=== PATIENT | male | born 1985 | race Caucasian/White ===

== ENCOUNTER 2018-04-17 18:06 | Inpatient (IN) | payer OTHER ==
[2018-04-17] MEDS ORDERED: DEXAMETHASONE 10 MG/ML VIAL IVP ONE (18:49)
[2018-04-17] MEDS ORDERED: NS 1,000 ML IV ONE (18:49)
[2018-04-17] MEDS ORDERED: chlorproMAZINE HCL 50 MG in NS 50 ML IV ONE (18:49)
--- NOTE | 2018-04-17 18:54 | EDPHY ---
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 He reports having a upper respiratory type illness last week but no fever. His symptoms essentially resolved other than a mild runny nose. However on Monday he developed a headache and nausea and vomiting. This is persisted for the last 3 days. No fever. No neck stiffness. No trauma. He states that he had a MRI in December and is pituitary was normal at that time and had no abnormal masses. He does not get frequent headaches. No focal weakness or deficits. He presented to an urgent care earlier today and was given Zofran and Toradol without improvement. Severity: Moderate REVIEW OF SYSTEMS: Constitutional: denies: chills, fever, recent illness, recent injury EENTM: denies: blurred vision, double vision, nose congestion Respiratory: denies: cough, shortness of breath Cardiac: denies: chest pain, irregular heart rate, lightheadedness, palpitations Gastrointestinal/Abdominal: denies: abdominal pain, diarrhea, nausea, vomiting, blood streaked stools Genitourinary: denies: dysuria, frequency, hematuria, pain Musculoskeletal: denies: joint pain, muscle pain Skin: denies: lesions, rash, jaundice, bruising Neurological: See HPI denies: numbness, paresthesia, tingling, dizziness, weakness Hematologic/Lymphatic: denies: blood clots, easy bleeding, easy bruising Immunologic/allergic: denies: HIV/AIDS, transplant 10 systems reviewed and negative except as noted EXAM: GENERAL: Well-appearing, well-nourished and in no acute distress. HEAD: Atraumatic, normocephalic. EYES: Pupils equal round and reactive to light, extraocular movements intact, sclera anicteric, conjunctiva are normal. ENT: TMs normal, nares patent, oropharynx clear without exudates. Moist mucous membranes. NECK: Normal range of motion, supple without lymphadenopathy or JVD. LUNGS: Breath sounds clear to auscultation bilaterally and equal. No wheezes rales or rhonchi. HEART: Regular rate and rhythm without murmurs, rubs or gallops. ABDOMEN: Soft, nontender, normoactive bowel sounds. No guarding, no rebound. No masses appreciated. BACK: No CVA tenderness, no spinal tenderness, step-offs or deformities EXTREMITIES: Normal range of motion, no pitting or edema. No clubbing or cyanosis. NEUROLOGICAL: Cranial nerves II through XII grossly intact. Normal speech, normal gait. 5/5 strength, normal movement in all extremities, normal sensation , normal reflexes PSYCH: Normal mood, normal affect. SKIN: Warm, dry, normal turgor, no visible rashes or lesions. Source: Patient Exam Limitations: No limitations - Personal History Current Tetanus Diphtheria and Acellular Pertussis (TDAP): Unsure - Medical/Surgical History Hx Asthma: No Hx Chronic Respiratory Disease: No Hx Diabetes: No Hx Cardiac Disease: No Hx Renal Disease: No Hx Cirrhosis: No Hx Alcoholism: No Hx HIV/AIDS: No Hx Splenectomy or Spleen Trauma: No Other PMH: pituitary condition - Social History Smoking Status: Never smoked Alcohol Use: Sober Drug Use: None Constitutional: Initial Vital Signs Temperature (C) 36.6 C 04/17/18 18:12 Heart Rate 84 04/17/18 18:12 Respiratory Rate 18 04/17/18 18:12 Blood Pressure 102/85 H 04/17/18 18:12 O2 Sat (%) 98 04/17/18 18:12 O2 Delivery Mode Room Air Allergies/Adverse Reactions: No Known Allergies Allergy (Unverified 04/17/18 18:10) Home Medications: Medication Instructions Recorded Desmopressin Acetate [DESMOPRESSIN 1 spray NASAL BID PRN 04/17/18 ACETATE] Desmopressin Acetate [DESMOPRESSIN 2 sprays NASAL HS 04/17/18 ACETATE] Omeprazole 10 mg PO DAILY PRN 04/17/18 Medical Decision Making - Diagnostics EKG Interpretation: An EKG obtained and was read and documented in trace view. Please see trace view for full reading and report. Sinus rhythm, right bundle branch block, repolarization abnormality, no T-wave abnormalities. No previous for comparison Imaging: Discussed imaging studies w/ remotely operated vehicle Radiologist ED Course/Re-evaluation: 7:30 p.m. We discussed head CT which is reassuring. The medication has not been given yet because of some difficulty getting an IV in the patient went to CT scan. 735 p.m. alerted about patient's electrolyte abnormalities. The patient did receive 500 cc of normal saline before the labs are back. We have now turned the fluids off. We will obtain EKG. 7:35 p.m. Discussed the case with Dr. Torrez who will admit. She requests we consult renal. 7:50 p.m. I discussed the case with Dr. Lizama from Nephrology. He requests a repeat chemistry and will come to evaluate. He also requests urine osmoles and urine sodium. Differential Diagnosis: Partial list of the Differential diagnosis considered include but were not limited to; electrolyte abnormality, dehydration, migraine, tension headache and although unlikely based on the history and physical exam, I also considered hemorrhage, tumor, mass. Critical Care Time: Critical care time spent by me, Dr. Benito exclusive with this patient was 45 minutes, exclusive of the PA time exclusive of procedures. The organ system that was at risk was neurologic and I gave fluids, medications, consultation to prevent worsening of the patient's condition - Data Points Laboratory Results: Laboratory Results 04/17/18 18:44 04/17/18 18:44 Medications Given: Acetaminophen (Tylenol) 650 mg PO Q4HRS PRN PRN Reason: Pain, Mild/Fever, Can Take PO Stop: 10/14/18 19:38 Last Admin: 04/18/18 07:57 Dose: 650 mg Desmopressin Acetate (Desmopressin 10 Mcg/0.1 Ml Wana) 10 mcg ALTNARE BID ELSA Stop: 10/16/18 11:29 Last Admin: 04/19/18 11:55 Dose: 1 spray Dextrose (D5w) 1,000 mls @ 250 mls/hr IV CONT ELSA Stop: 10/15/18 09:59 Last Admin: 04/19/18 16:52 Dose: 1,000 mls Lorazepam (Ativan) 1 mg PO HS ELSA Stop: 10/15/18 20:59 Last Admin: 04/18/18 21:01 Dose: 1 mg Ondansetron HCl (Zofran) 4 mg IVP Q4HRS PRN PRN Reason: Nausea/Vomiting, Can't Take PO Stop: 10/14/18 19:38 Last Admin: 04/17/18 20:40 Dose: 4 mg Discontinued Medications Dexamethasone (Decadron Injection) 10 mg IVP EDNOW ONE Stop: 04/17/18 19:16 Last Admin: 04/17/18 19:21 Dose: 10 mg Chlorpromazine HCl 50 mg/ (Sodium Chloride) 52 mls @ 62.4 mls/hr IV ONCE ONE Stop: 04/17/18 19:38 Last Admin: 04/17/18 19:24 Dose: 52 mls Sodium Chloride (Ns) 1,000 mls @ 0 mls/hr IV ONCE ONE; Wide Open PRN Reason: Protocol Stop: 04/17/18 18:50 Last Admin: 04/17/18 19:19 Dose: 1,000 mls Albumin Human (Alburx 5) 500 mls @ 0 mls/hr IV ONCE ONE PRN Reason: As Directed Stop: 04/17/18 21:07 Last Admin: 04/17/18 22:19 Dose: Not Given Dextrose (D5w) 200 mls @ 200 mls/hr IV ONCE ONE Stop: 04/18/18 07:51 Last Admin: 04/18/18 07:46 Dose: Not Given Dextrose (D5w) 200 mls @ 200 mls/hr IV ONCE ONE Stop: 04/18/18 07:59 Last Admin: 04/18/18 07:51 Dose: 200 mls Sodium Chloride (1/2 Ns) 1,000 mls @ 100 mls/hr IV CONT ELSA Stop: 10/15/18 07:14 Last Admin: 04/18/18 08:58 Dose: 1,000 mls Desmopressin Acetate 4 mcg/ (Sodium Chloride) 51 mls @ 102 mls/hr IV ONCE ONE Stop: 04/18/18 10:29 Last Admin: 04/18/18 09:57 Dose: 51 mls Desmopressin Acetate 6 mcg/ (Sodium Chloride) 51.5 mls @ 100 mls/hr IV ONCE ONE Stop: 04/18/18 16:18 Last Admin: 04/18/18 16:36 Dose: 51.5 mls Influenza Virus Vaccine Quadrival (Flulaval Quad [id number] (6mo+)) 0.5 ml IM .ONCE ONE Stop: 04/18/18 08:25 Last Admin: 04/18/18 08:43 Dose: 0.5 ml Lorazepam (Ativan) 1 mg PO ONCE ONE Stop: 04/18/18 02:58 Last Admin: 04/18/18 03:03 Dose: 1 mg Departure - Departure Disposition: [facility] In[facility] Acute Clinical Impression: Hyponatremia, Diabetes insipidus, Hyperkalemia Condition: Critical
[2018-04-17 19:06] LABS: PLATELET COUNT 347 10^3/uL (150-400)
[2018-04-17] MEDS ORDERED: DEXAMETHASONE 4 MG/ML VIAL IVP ONE (19:15)
[2018-04-17] MEDS ORDERED: ONDANSETRON 4 MG/2 ML VIAL IVP PRN (19:39)
[2018-04-17] MEDS ORDERED: ONDANSETRON DISINTEGRATING 4 MG TAB PO PRN (19:39)
[2018-04-17] MEDS ORDERED: ACETAMINOPHEN 325 MG TAB PO PRN (19:39)
--- NOTE | 2018-04-17 19:49 | CPEKG ---
Test Reason : OPEN Blood Pressure : / mmHG Vent. Rate : 072 BPM Atrial Rate : 071 BPM P-R Int : 164 ms QRS Dur : 132 ms QT Int : 389 ms P-R-T Axes : 047 043 072 degrees QTc Int : 426 ms Sinus rhythm IVCD, consider atypical RBBB ST elev, probable normal early repol pattern Confirmed by Mark Benito ([id number]) on 04/17/2018 7:48:44 PM Referred By: Confirmed By:Mark Benito
[2018-04-17] MEDS ORDERED: ALBUMIN 5% 500 ML IV ONE (21:06)
--- NOTE | 2018-04-17 21:28 | GHP ---
DATE OF ADMISSION: 04/17/2018 CHIEF COMPLAINT: Nausea, vomiting, hyponatremia. HISTORY OF PRESENT ILLNESS: A 32-year-old male with diabetes insipidus, on desmopressin, presenting with persistent nausea, vomiting, diarrhea since Monday morning. He reports URI symptoms, including sore throat, productive cough, runny nose last week. [place] a little bit better, but then developed nausea, vomiting, watery diarrhea on Monday that has been persistent since that time. Denies fevers. Has not been able to keep much fluid or liquid down. Has complained of a headache since Monday. No neck stiffness or pain. No slurred speech or weakness. Per , no confusion. He presented to urgent care earlier today, was given Zofran and Toradol, but symptoms persisted. In the ER, he was given 500 mL of normal saline. Sodium was 115. REVIEW OF SYSTEMS: I completed a 10-point review of systems, negative except as noted in HPI. PAST MEDICAL HISTORY: Diabetes insipidus, diagnosed March 2017. SOCIAL HISTORY: Lives in [place] with his . Works at [employer]. 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 No tobacco or illicits. SURGERIES: [place] teeth. FAMILY HISTORY: Mother with breast cancer. Maternal grandfather with leukemia. ALLERGIES: None. HOME MEDICATIONS: Zofran, Toradol, desmopressin. PHYSICAL EXAMINATION: VITAL SIGNS: Temperature 36.6, blood pressure /85, repeat 135/85, heart rate in the 70s, respirations 16, 96% on room air. GENERAL: He is ill-appearing, lying in bed with his eyes covered with a towel. HEENT: PERRLA. Dry mucous membranes. Oropharynx looks clear. CV: Regular rate and rhythm. LUNGS: Clear. ABDOMEN: Soft, nontender, nondistended. Positive bowel sounds. : No Smith. MUSCULOSKELETAL: 5/5 upper and lower extremity strength. NEURO: 2 through 12 intact. PSYCH: Alert and oriented x3. LABORATORY DATA: Sodium 115, potassium 6.6, chloride 86, carbon dioxide 19, creatinine 0.5, glucose 103, calcium 8.8. Specimen is hemolyzed. WBC 6, hemoglobin 15, hematocrit 40, platelets 347. ASSESSMENT AND PLAN: 1. Hyponatremia: complicated with diabetes insipidus and dehydration. Received 500 cc of normal saline in the ER. Holding this. Repeating BMP now, urine studies pending. Dr. Lizama with Nephrology will consult. 2. Nausea, vomiting, diarrhea: GI/resp panel pending. 3. Diabetes insipidus: Hold desmopressin. Followed by PCP, Dr. Salgado, phone #[phone]. 4. Hyperkalemia: No peaked T-waves on EKG. Suspect hemolysis. Repeat BMP now. Monitor on telemetry. 5. Diet: Regular. 6. Deep venous thrombosis prophylaxis: Low risk ambulatory. 7. Disposition: The patient warrants inpatient admission to the ICU for serial labs, telemetry, and Nephrology consultation. /[id number]/MODL MTDD
[2018-04-17] MEDS ORDERED: NS 1,000 ML IV SCH (23:15)
[2018-04-18] MEDS ORDERED: LORazepam 0.5 MG TAB PO ONE (02:57)
--- NOTE | 2018-04-18 06:50 | PDMN ---
Medical Necessity Medical necessity: Pt meets inpt criteria per MD order and MCG M-370, Vomiting. 32 y/o w/diabetes insipidus, presenting w/persistent nausea/vomiting, diarrhea, severe electrolyte abnormality w/sodium of 115, potassium of 6.6. Pt also reports URI symptoms. Inpt admission to ICU, IVF, serial labs, tele, nephrology consult. Est LOS>2MN for ongoing eval/management of above.
[2018-04-18] MEDS ORDERED: D5W 200 ML IV ONE ×2 (06:52→07:00)
[2018-04-18] MEDS ORDERED: 1/2 NS 1,000 ML IV SCH (07:15)
--- NOTE | 2018-04-18 07:51 | GCON ---
RENAL CONSULTATION DATE OF CONSULTATION: 04/17/2018 REQUESTING PHYSICIAN: Dr. Sadie Torrez REASON FOR CONSULT: Hyponatremia. HISTORY OF PRESENT ILLNESS: The patient is a 32-year-old man with history of central diabetes insipi dus, on desmopressin daily, who presents with 3 days of nausea, vomiting and diarrhea, and found to h ave severe hyponatremia. Renal has been asked to assist in the evaluation and management of his cond ition. The patient reports he had mild upper respiratory infection symptoms over the previous week, which progressed to nausea, vomiting and diarrhea for the last 3 days. This has been worse today, al so including headache and hiccuping. During the last couple of days, he has been able to drink a lit tle bit of water, but very little food. He had half a banana today. He denies any fevers, chills, c hest pain or shortness of breath. He denies any known sick contacts. He has continued on his prescr iption medication including desmopressin and has also taken some ibuprofen and Zantac for his symptom s. He was admitted with a sodium of 115, and was given 500 cc of normal saline in the ER prior to re turn of the labs, at which point the saline was stopped. He also received Zofran for supportive care as well as Compazine. His nausea is improving and his hiccups are gone, although he feels lethargic from this medication. His is at bedside and notes that he looks much better than he did romie reeder. The patient had an evaluation about 2 years ago for polyuria. He was worked up by his PCP, who found him to have a high normal sodium with significant dilute urine. I spoke with the PCP and he recalls about 14 liter of dilute urine, although he does think a water depravation test was done. Patient w as referred to an scientific photographer in [place], where he was living at the time, who agreed with the diagnosis. He had an MRI and there was questionable mass in the pituitary stalk. He did not hav e further workup at that time, but was stabilized with the use of desmopressin. There have not been any other episodes of hyponatremia. He moved here about a year ago, and established care at the [facility]. He had a repeat MRI which was normal. The patient denies any history of lithium use or trauma to his brain. On this admit, CT head was negative. PAST MEDICAL HISTORY: Central DI. MEDICATIONS: Desmopressin 10 mcg per spray times 3-4 sprays daily. Also takes Claritin and PPI. ALLERGIES: No drug allergies. SOCIAL HISTORY: The patient is a former alcoholic. Denies any recent alcohol use. Denies drugs. Mahnaz ritchie with his in [place]. FAMILY HISTORY: Mother had breast cancer, and grandfather, leukemia. No known renal disease or hypo natremia. REVIEW OF SYSTEMS: 12 systems reviewed and negative, except as per HPI. PHYSICAL EXAM: VITAL SIGNS: Temperature 36.6, pulse 76, respirations 13, blood pressure 101/63. Ox ygenation 93% on room air. GENERAL: Patient is lethargic, but oriented x3 and answers questions nicholas ropriately. HEENT: Extraocular muscles are intact. Pupils are equal, round and reactive to light. NECK: Supple. No JVD. PULMONARY: Clear to auscultation bilaterally. CV: Regular rate and rhyth m. No murmurs, rubs or gallops. ABDOMEN: Soft, nontender and nondistended. Positive bowel sounds. No masses or organomegaly. EXTREMITIES: No cyanosis, clubbing or edema. SKIN: No rash or lesion . NEURO: Lethargic, but appropriate, moves all extremities. Sensation intact. LABS: Sodium 118, up from initial level of 115. Potassium 4.2, down from initial 6.6. Chloride 88, bicarb 20, creatinine 0.6, calcium 8.6. White count 6.6, hemoglobin 15.2, platelets 347. IMAGING: CT head without contrast negative for acute process. EKG: Normal sinus rhythm. Right bundle branch block. No peaked T waves. ASSESSMENT AND PLAN: 1. Hyponatremia. The patient has a history of central diabetes insipidus and has been using desmopr essin, despite his recent nausea, vomiting and diarrhea, and poor solute intake, as well as nonsteroi radha antiinflammatory drug use, all of which can contribute to his current hyponatremia. At this time , we will hold desmopressin and he should hold nonsteroidal antiinflammatory drugs indefinitely. Con tinue supportive care for the nausea and vomiting. Initially considering hypertonic saline, but his repeat sodium has already increased by 3 mEq from the initial result, and given his history of diabet es insipidus, he is vulnerable to a rapid overcorrection. Urine osmolality currently is pending, and we need to follow this closely to help avoid overcorrection, as well as following sodium q. 2 hours for now. If the sodium stalls, will add normal saline to provide solute. If it corrects too quickly , will add D5W and may need to resume desmopressin at a low dose, and titrate up as needed. His last dose was self-administered at 5 p.m. today, so should be starting to wear off around now. His hypon atremia presumably is rather acute given his recent onset of symptoms, however, we will still follow closely to avoid overcorrection. We will aim for a level in the low to lower mid 120s by tomorrow mo rning, and gradually slowly rise throughout the day. 2. Hyperkalemia. This was seen on the initial lab, but was likely a lab error due to hemolysis. It was normal on repeat. No further workup needed at this time. 3. Nausea, vomiting and diarrhea. Likely a viral process, probably gastroenteritis. He is getting ruled out for flu. 4. Central diabetes insipidus. This was diagnosed after the patient presented with years of polyuri a and supposedly had a high-normal serum sodium with 14 liters of dilute urine output on collection. This was followed by an MRI which was read as normal by Radiology, but with suspicion of a pituitary mass by his scientific photographer, whom he was seeing at [facility]. This was repeated i n November of 2016 here, and was read as normal by the radiologist again at that time. These records m ay need to be obtained for further clarification. Further management for the acute hyponatremia as a sean. Thank you very much for the consult. We will follow with you. /[id number]/MODL
[2018-04-18] MEDS: D5W 1,000 ML IV SCH ×3 (09:30→21:01)
[2018-04-18] MEDS ORDERED: DESMOPRESSIN ACETATE 4 MCG in NS 50 ML IV ONE (10:00)
--- NOTE | 2018-04-18 10:06 | ASMTCMCOM ---
CM Note CM Note Notes: Chart reviewed for discharge planning purposes. Patient admitted with hyponatremia following illness with N/V/D. HX of diabetes insipidus, on vasopressin. No current needs identified CM available should needs arise. Plan: likely no needs when medically cleared for discharge. Date Signed: 04/18/2018 10:05 AM Electronically Signed By:Georgina Rosen RN
--- NOTE | 2018-04-18 13:30 | HOSPPROG ---
Hospitalist Progress Note Assessment/Plan: Hyponatremia - in setting of DI, on desmopressin as outpt, which was held on admission. Na 115 --> 130, rapid correction. -DDAVP and D5W given this am, which has slowed correction -cont q2h Na -renal following, appreciate assistance N/V - possibly symptom from hyponatremia, improved with correction of Na Tachycardia - suspect volume depletion -cont IVF's, monitor uop Full code Dispo - cont inpt, ICU Subjective: Pt feels better this am. No more headache or nausea. No vomiting. UOP has slowed down since receiving DDAVP this am. Objective: Vital Signs Temp Pulse Resp BP Pulse Ox 36.6 C 128 H 32 H 95/59 L 98 04/18/18 04:00 04/18/18 12:00 04/18/18 12:00 04/18/18 12:00 04/18/18 12:00 Microbiology 04/17/18 20:05 Respiratory Panel (PCR) - Final Nasal, Sinus - Swab No Organism Detected By Pcr 04/17/18 04/18/18 04/19/18 05:59 05:59 05:59 Intake Total 862 Output Total 2600 4700 Balance -1738 -4700 - Physical Exam Constitutional: no apparent distress Eyes: PERRL Ears, Nose, Mouth, Throat: moist mucous membranes Cardiovascular: regular rate and rhythym Respiratory: no respiratory distress, clear to auscultation Gastrointestinal: normoactive bowel sounds, soft, non-tender abdomen Skin: warm Musculoskeletal: full muscle strength Neurologic: AAOx3 Psychiatric: interacting appropriately ICD10 Worksheet Patient Problems: Problems Problem Status Onset Diabetes insipidus Acute Hyperkalemia Acute Hyponatremia Acute
[2018-04-18] MEDS ORDERED: DESMOPRESSIN ACETATE IV ONE (15:48)
[2018-04-18] MEDS ORDERED: NS IV ONE (15:48)
--- NOTE | 2018-04-18 15:59 | SOAPPROG ---
SOAP Progress Note Assessment/Plan: Assessment: 1. hypoNa: appropriate urinary dilution as evidenced by low Uosm. Appears to have had thorough eval as documented by Dr. Lizama, with accurate dx. He has been titrating his ddavp based on uo and I suspect has inadvertently overdosed himself. He did have a documented Na 139 in late November 2017. His Na has over- corrected, and he rec'd 4mcg iv ddavp this am with a transient decrease in uo that now appears to have worn off. Will redose at 6mcg now and increase D5W to 200ml/hr. I encouraged him to increase water intake as much as possible. Goal is to get Na down to 123-125 early this evening (approx 7pm). If that can be achieved he could probably be transitioned to intranasal ddavp q12h and allow him to slowly drift up. Long discussion with him re: dosing strategies and suggested that he dose more regularly instead of based on life situations. This will need to be coordinated with an antitank assault gunner, he has seen on at [facility] but has plans to establish care here in [facility]. Plan: 04/18/18 15:52 Subjective: Feels well. BREWSTER subsided early this am. Started on D5W and rec'd ddavp IV earlier today for overly rapid Na correction. Objective: Vital Signs Temp Pulse Resp BP Pulse Ox 36.6 C 103 H 14 103/61 98 04/18/18 04:00 04/18/18 14:00 04/18/18 14:00 04/18/18 14:00 04/18/18 14:00 Microbiology 04/17/18 20:05 Respiratory Panel (PCR) - Final Nasal, Sinus - Swab No Organism Detected By Pcr Laboratory Results 04/18/18 15:05 04/17/18 04/18/18 04/19/18 05:59 05:59 05:59 Intake Total 862 Output Total 2600 5100 Balance -1738 -5100 Physical Exam - Physical Exam General Appearance: no apparent distress Respiratory: lungs clear Cardiac/Chest: regular rate, rhythm Abdomen: soft Extremities: pedal edema (none) ICD10 Worksheet Patient Problems: Problems Problem Status Onset Diabetes insipidus Acute Hyperkalemia Acute Hyponatremia Acute
[2018-04-18] MEDS: LORazepam 1 MG TAB PO SCH (21:01)
--- NOTE | 2018-04-19 11:27 | HOSPPROG ---
Hospitalist Progress Note Assessment/Plan: Hyponatremia - in setting of DI, on desmopressin as outpt, which was held on admission. He has correct quite rapidly. Discussed with renal. -Repeat DDVAP and cont D5W, plan to re-lower with goal Na 128 this evening, then slowly rise -cont frequent Na monitoring -appreciate renal assistance N/V - likely a symptom from hyponatremia, improved with correction of Na Tachycardia - suspect volume depletion -cont IVF's, monitor uop Full code Dispo - cont inpt, ICU Subjective: Pt feels better. No more nausea or headache. Feels a little tired , sluggish today, o/w no complaints. Tolerating po well. Objective: Vital Signs Temp Pulse Resp BP Pulse Ox 36.8 C 98 16 101/64 99 04/19/18 08:00 04/19/18 10:00 04/19/18 10:00 04/19/18 10:00 04/19/18 10:00 Microbiology 04/17/18 20:05 Respiratory Panel (PCR) - Final Nasal, Sinus - Swab No Organism Detected By Pcr Laboratory Results 04/19/18 09:35 04/18/18 04/19/18 04/20/18 05:59 05:59 05:59 Intake Total 862 3290 Output Total 2605 6310 8069 Balance -3603 -8479 -7220 - Physical Exam Constitutional: no apparent distress Eyes: PERRL Ears, Nose, Mouth, Throat: moist mucous membranes Cardiovascular: regular rate and rhythym Respiratory: no respiratory distress, clear to auscultation Gastrointestinal: normoactive bowel sounds, soft, non-tender abdomen Skin: warm Musculoskeletal: full muscle strength Neurologic: AAOx3 Psychiatric: interacting appropriately ICD10 Worksheet Patient Problems: Problems Problem Status Onset Diabetes insipidus Acute Hyperkalemia Acute Hyponatremia Acute
--- NOTE | 2018-04-19 11:34 | SOAPPROG ---
SOAP Progress Note Assessment/Plan: Assessment/Plan: Hyponatremia: pt with underlying DI and on DDAVP at home, may have been taking too much as he titrates it on his own. He is correcting too quickly, Na up to 136 this am. - Goal sodium is about 128 this evening and 131 tomorrow am. - Will restart on D5W. - Will dose intranasal DDAVP now and again this evening, will likely transition him to BID dosing. - Will continue to monitor sodium q4h for now. - Pt having good oral fluid intake. Subjective: No acute events overnight. Pt is having large UOP this am. His D5W was stopped last night when sodium got to 126, now up to 136 this am and back on D5W. He states he feels fine, drinking lots of water, has no complaints. Objective: Vital Signs Temp Pulse Resp BP Pulse Ox 36.8 C 98 16 101/64 99 04/19/18 08:00 04/19/18 10:00 04/19/18 10:00 04/19/18 10:00 04/19/18 10:00 Microbiology 04/17/18 20:05 Respiratory Panel (PCR) - Final Nasal, Sinus - Swab No Organism Detected By Pcr Laboratory Results 04/19/18 09:35 04/18/18 04/19/18 04/20/18 05:59 05:59 05:59 Intake Total 862 3290 Output Total 2603 0583 5465 Balance -8484 -1297 -0734 General: alert and oriented, no acute distress Eyes: EOMI, PERRL OP: Clear CV: RRR Resp: nonlabored respirations on RA Abd: Soft, NT/ND Ext: no edema Neuro: CN II-XII Grossly intact, no asterixis Psych: cooperative, appropriate mood and affect ICD10 Worksheet Patient Problems: Problems Problem Status Onset Hyponatremia Acute Diabetes insipidus Acute Hyperkalemia Acute
[2018-04-19] MEDS: DESMOPRESSIN 10 MCG/0.1 ML 5ML NASAL SPRAY ALTNARE SCH ×2 (11:55→20:58)
[2018-04-19] MEDS: D5W 1,000 ML IV SCH ×3 (13:11→23:56)
[2018-04-19] MEDS: LORazepam 1 MG TAB PO SCH (20:58)
[2018-04-20] MEDS ORDERED: CALCIUM CARBONATE 500 MG CHEWABLE TAB PO PRN (00:39)
[2018-04-20 08:06] VITALS: BP 137/96
[2018-04-20] MEDS: DESMOPRESSIN 10 MCG/0.1 ML 5ML NASAL SPRAY ALTNARE SCH (08:23)
--- NOTE | 2018-04-20 10:03 | SOAPPROG ---
SOAP Progress Note Assessment/Plan: Assessment/Plan: Hyponatremia: pt with underlying DI and on DDAVP at home, may have been taking too much as he titrates it on his own vs drinking too much water. His sodium is at goal this am at 132. He is off D5W and on BID DDAVP dosing. - Would continue DDAVP at current dosing. - Advised pt to not drink as much fluid at home. - Will plan to recheck labs early next week. - He has been recommended to a local cold header and also to get a local PCP. We will f/u his sodium as outpatient in the meantime. Subjective: No acute events overnight. Pt now on BID DDAVP and tolerating well, feeling back to normal. Objective: Vital Signs Temp Pulse Resp BP Pulse Ox 36.6 C 100 12 137/96 H 100 04/19/18 20:00 04/20/18 08:00 04/20/18 08:00 04/20/18 08:00 04/20/18 08:00 Laboratory Results 04/20/18 08:30 04/19/18 04/20/18 04/21/18 05:59 05:59 05:59 Intake Total 3290 5922 Output Total 6925 5400 Balance -3635 522 General: alert and oriented, no acute distress Eyes: EOMI, PERRL OP: Clear CV: RRR Resp: nonlabored respirations on RA Abd: Soft, NT/ND Ext: no edema BLE Neuro: CN II-XII grossly intact Psych: cooperative, appropriate mood and affect ICD10 Worksheet Patient Problems: Problems Problem Status Onset Diabetes insipidus Acute Hyperkalemia Acute Hyponatremia Acute
--- NOTE | 2018-04-20 11:19 | ASDISCHSUM ---
Discharge Information Plan Status:Home with No Needs Medically Cleared to Leave:04/19/2018 Discharge Date:04/19/2018 CM D/C Disposition: ADT D/C Disposition:Home, Routine, Self-Care Projected Discharge Date:04/20/2018 12:00 AM Transportation at D/C:Family Discharge Delay Reason: Follow-Up Date:04/20/2018 12:00 AM Discharge Slot:1 - 8:01 am - 12:00 noon Final Diagnosis:Hyponatremia, diabetes, hyperkalemia Placement Information Patient Contact Information Contact Name:LINDSAY Relationship: [address] Work Phone: [place] Alternate Phone: [facility]/Zip Code:[place] [address] Email: Financial Information Financial Class:BC Primary Plan Desc:LASHA HARRY [facility] Primary Plan Number:[id number] Secondary Plan Desc: Secondary Plan Number: Assessment Information LACE LACE Length of stay for Answers: 3 days current admission Acuity / Level of Answers: Yes Care: Did the patient have an inpatient admission? Comorbidities - select Answers: Diabetes (uncontrolled or all that apply controlled) # of Emergency department Answers: 1-2 visits in the last 6 months Score: 8 Date Signed: 04/20/2018 11:17 AM Electronically Signed By:Lucinda Merida LCSW [facility] CM Progress Note CM Note CM Note Notes: Chart reviewed for discharge planning purposes. Patient admitted with hyponatremia following illness with N/V/D. HX of diabetes insipidus, on vasopressin. No current needs identified CM available should needs arise. Plan: likely no needs when medically cleared for discharge. Date Signed: 04/18/2018 10:05 AM Electronically Signed By:Georgina Rosen RN Case Management Discharge Plan Note Case Management Discharge Discharge Order Complete? Answers: Yes Patient to Obtain Answers: Independently Medications Transportation Arranged Answers: Family/Friends Family Notified Answers: Yes Notes: [place], Discharge Comments Notes: Patient is discharging home today, independently.Patient's will transport him home. No further needs. Date Signed: 04/20/2018 11:16 AM Electronically Signed By:Lucinda Merida LCSW Intervention Information
--- NOTE | 2018-04-21 05:37 | GDS ---
DISCHARGE DIAGNOSES: 1. Hyponatremia in the setting of DDAVP use. 2. Diabetes insipidus on DDAVP. 3. Nausea and vomiting, likely secondary to hyponatremia, resolved. 4. Sinus tachycardia, improved. CONSULTANTS: Dr. Rubin Lizama, Nephrology. HISTORY: For details please see history and physical dated April 17, 2018. In brief, Mr. Guerra is a 32-year-old male who was diagnosed with diabetes insipidus in 2017 and started on DDAVP. This is managed by his primary care physician. He reportedly has been socially dosing his DDAVP to minimize his urine output. He presented to the emergency department with nausea and vomiting , was found to have a sodium of 115. He was admitted to the hospital for further management. HOSPITAL COURSE: Patient was admitted to the intensive care unit. His DDAVP was held. He had a relatively rapid correction initially and was started on D5W. His sodium was lowered and then allowed to slowly rise again. He did require several doses of DDAVP in addition to D5W to slow his rate of correction. He ultimately corrected from 115 to 132 over the course of 3 days. His nausea and vomiting symptoms have completely resolved. We discussed more scheduled use of his DDAVP and he now understands the risk of electrolyte abnormalities with his previous approach of dosing when convenient. He will be discharged on DDAVP intranasal spray 10 mcg twice daily. He will have a followup basic metabolic panel on Monday with results to Dr. Lacie Saba at [facility]. I have also referred him to Dr. Harjit Pizarro, Endocrinology for closer management of his diabetes insipidus and DDAVP use. DISPOSITION: Patient is discharged home in stable condition. FOLLOWUP: 1. Dr. Harjit Pizarro, Endocrinology. 2. Dr. Lacie Saba, Nephrology. 3. Dr. Annetta Loya, Primary Care. Basic metabolic panel order is provided for him to have drawn on Monday with results to Dr. Lacie Saba. He understands this plan. DISCHARGE MEDICATIONS: Please see [facility] for completed-medication list. New medications on discharge include Desmopressin 10 mcg per 0.1 mL spray 1 spray alternating nares b.i.d. He will continue all other outpatient medications as previously prescribed including omeprazole 10 mg p.o. daily p.r.n. /[id number]/MODL MTDD
== END 2018-04-20 10:55 | disposition home or self-care (01) | DRG 641 ==
LOC: F2N 20:30
PROVIDERS: ADMIT Internal Medicine; ATTEND Internal Medicine
DX: E87.1 Hypo-osmolality and hyponatremia (principal); E23.2 Diabetes insipidus; R00.0 Tachycardia, unspecified; E86.0 Dehydration; Z23 Encounter for immunization; Z80.3 Family history of malignant neoplasm of breast; Z80.6 Family history of leukemia
CPT/HCPCS: 96374; G0008; J1100; J2405; J2597; J3230